=== PATIENT | female | born 1955 | race Two or more races ===

== ENCOUNTER 2023-03-12 17:04 | Inpatient (IN) | payer OTHER ==
[~2023-03-12] VITALS: Ht 167.6 cm; Wt 54.4 kg
[2023-03-12 20:59] LABS: MEAN CORPUSCULAR HGB CONC 35.6 g/dl (32.0-36.0); RED BLOOD COUNT 1.62 M/uL (4.00-6.00); RED CELL DISTRIBUTION WIDTH 17.4 % (11.5-14.5)
[2023-03-12 21:02] LABS: MEAN CELL VOLUME 130.9 fL (80.00-100.00); MEAN CORPUSCULAR HEMOGLOBIN 46.2 pg (27.00-32.0)
[2023-03-12 21:03] LABS: HEMATOCRIT 21.2 % (36.0-45.00); PLATELET COUNT 101 K/uL (150-450)
[2023-03-12 21:14] LABS: HEMOGLOBIN 7.5 g/dL (12.0-15.00)
[2023-03-12 21:22] LABS: BILIRUBIN TOTAL 1.28 mg/dL (0.3-1.2); CALCIUM 8.8 mg/dL (8.5-10.1); CREATININE SERUM 1.13 mg/dL (0.55-1.02); GFR 48.17; GLOBULINA 4.5 G/DL (2.4-3.5); TOTAL PROTEIN 7.5 gm/dL (6.4-8.2)
[2023-03-12 21:34] LABS: POTASSIUM 2.85 mEq/L (3.5-5.1)
[2023-03-13 10:30] LABS: MEAN CORPUSCULAR HGB CONC 34.7 g/dl (32.0-36.0); RED BLOOD COUNT 1.52 M/uL (4.00-6.00); RED CELL DISTRIBUTION WIDTH 16.9 % (11.5-14.5)
[2023-03-13 10:34] LABS: PLATELET COUNT 90 K/uL (150-450)
[2023-03-13 10:35] LABS: HEMATOCRIT 20.1 % (36.0-45.00); MEAN CELL VOLUME 132.2 fL (80.00-100.00)
[2023-03-13 11:10] LABS: CALCIUM 8.1 mg/dL (8.5-10.1); CREATININE SERUM 0.98 mg/dL (0.55-1.02); GFR 56.78; MAGNESIUM 1.5 mg/dL (1.8-2.4); POTASSIUM 3.12 mEq/L (3.5-5.1)
[2023-03-14 08:32] LABS: ALBUMIN 2.6 gm/dL (3.4-5.0); BILIRUBIN TOTAL 0.78 mg/dL (0.3-1.2); BILIRUBIN,CONJUGATED 0.33 mg/dL (0.0-0.2); BILIRUBIN,UNCONJUGATED 0.45 mg/dL (0.0-0.6); CALCIUM 7.9 mg/dL (8.5-10.1); CHOL HDL RATIO 1.7 (0-5.0); CREATININE SERUM 0.99 mg/dL (0.55-1.02); GFR 56.12; MAGNESIUM 1.5 mg/dL (1.8-2.4); POTASSIUM 3.75 mEq/L (3.5-5.1); TSH 0.607 uIU/mL (0.358-3.74)
[2023-03-14 08:42] LABS: INR 1.16
[2023-03-14 08:50] LABS: MEAN CORPUSCULAR HGB CONC 34.7 g/dl (32.0-36.0); RED BLOOD COUNT 1.46 M/uL (4.00-6.00); RED CELL DISTRIBUTION WIDTH 16.9 % (11.5-14.5)
[2023-03-14 08:57] LABS: C-REACTIVE PROTEIN 4.21 MG/DL (0.00-0.29); T4 FREE 1.48 NG/ML (0.76-1.46)
[2023-03-14 10:43] LABS: HEMATOCRIT 19.3 % (36.0-45.00); HEMOGLOBIN 6.7 g/dL (12.0-15.00); MEAN CELL VOLUME 132.4 fL (80.00-100.00); MEAN CORPUSCULAR HEMOGLOBIN 45.8 pg (27.00-32.0); PLATELET COUNT 85 K/uL (150-450)
[2023-03-14 10:44] LABS: ERYTHROCYTE SEDIMENTATION RATE 47 mm/hr
[2023-03-14 12:59] LABS: PH,URINE 5.5 (5.0-8.0); URINE APPEARANCE Cloudy; URINE BILIRRUBIN Negative (NEGATIVE); URINE BLOOD Large; URINE COLOR Yellow; URINE GLUCOSE Negative (NEGATIVE); URINE LEUKOCYTE Small; URINE NITRATE Negative; URINE PROTEIN 30 (NEGATIVE); URINE UROBILINOGEN 0.2 E.U./dl
[2023-03-14 13:02] LABS: URINE BACTERIA 1267.4 uL (0.0-1933); URINE EPITHELIAL CELLS 23.8 uL (0.0-38.8); URINE RBC 195.7 uL (0.0-20.8); URINE WBC 7.2 uL (0.0-23.2)
[2023-03-14 13:52] LABS: URINE CRYSTALS NEGATIVE /HPF; URINE YEAST NEGATIVE /hpf
[2023-03-15 10:48] LABS: PROCALCITONIN 0.232 ng/ml (0.020-0.080)
[2023-03-15 13:28] LABS: HEMATOCRIT 38.5 % (36.0-45.00); HEMOGLOBIN 13.8 g/dL (12.0-15.00); MEAN CELL VOLUME 99.2 fL (80.00-100.00); MEAN CORPUSCULAR HEMOGLOBIN 35.6 pg (27.00-32.0); MEAN CORPUSCULAR HGB CONC 35.9 g/dl (32.0-36.0); RED BLOOD COUNT 3.88 M/uL (4.00-6.00)
[2023-03-15 13:31] LABS: PLATELET COUNT 64 K/uL (150-450)
[2023-03-15 13:32] LABS: RED CELL DISTRIBUTION WIDTH 32.1 % (11.5-14.5)
[2023-03-16 08:04] LABS: HEMATOCRIT 40.5 % (36.0-45.00); HEMOGLOBIN 14.3 g/dL (12.0-15.00); MEAN CELL VOLUME 100.4 fL (80.00-100.00); MEAN CORPUSCULAR HEMOGLOBIN 35.5 pg (27.00-32.0); MEAN CORPUSCULAR HGB CONC 35.3 g/dl (32.0-36.0); RED BLOOD COUNT 4.03 M/uL (4.00-6.00)
[2023-03-16 08:36] LABS: ERYTHROCYTE SEDIMENTATION RATE 36 mm/hr
[2023-03-16 09:03] LABS: BILIRUBIN TOTAL 2.84 mg/dL (0.3-1.2); CALCIUM 9.1 mg/dL (8.5-10.1); CREATININE SERUM 2.08 mg/dL (0.55-1.02); GFR 23.82; GLOBULINA 3.8 G/DL (2.4-3.5); MAGNESIUM 2.5 mg/dL (1.8-2.4); TOTAL PROTEIN 6.8 gm/dL (6.4-8.2)
[2023-03-16 09:21] LABS: C-REACTIVE PROTEIN 15.6 MG/DL (0.00-0.29); PHOSPHOROUS 1.6 mg/dL (2.5-4.9); POTASSIUM 2.93 mEq/L (3.5-5.1); RED CELL DISTRIBUTION WIDTH 32.8 % (11.5-14.5)
[2023-03-16 09:22] LABS: PLATELET COUNT 47 K/uL (150-450)
[2023-03-17 09:04] LABS: HEMATOCRIT 32.1 % (36.0-45.00); HEMOGLOBIN 11.2 g/dL (12.0-15.00); MEAN CELL VOLUME 102.7 fL (80.00-100.00); MEAN CORPUSCULAR HEMOGLOBIN 35.7 pg (27.00-32.0); MEAN CORPUSCULAR HGB CONC 34.8 g/dl (32.0-36.0); RED BLOOD COUNT 3.13 M/uL (4.00-6.00)
[2023-03-17 09:31] LABS: ALBUMIN 2.2 gm/dL (3.4-5.0); BILIRUBIN TOTAL 1.45 mg/dL (0.3-1.2); BILIRUBIN,CONJUGATED 0.62 mg/dL (0.0-0.2); BILIRUBIN,UNCONJUGATED 0.83 mg/dL (0.0-0.6); CALCIUM 7.8 mg/dL (8.5-10.1); CREATININE SERUM 2.2 mg/dL (0.55-1.02); GFR 22.33; MAGNESIUM 2.4 mg/dL (1.8-2.4); POTASSIUM 5.16 mEq/L (3.5-5.1)
[2023-03-17 09:35] LABS: PLATELET COUNT 31 K/uL (150-450); RED CELL DISTRIBUTION WIDTH 32.4 % (11.5-14.5)
[2023-03-18 07:35] LABS: HEMATOCRIT 27.6 % (36.0-45.00); MEAN CORPUSCULAR HGB CONC 35.7 g/dl (32.0-36.0); RED BLOOD COUNT 2.63 M/uL (4.00-6.00)
[2023-03-18 08:03] LABS: ALBUMIN 1.8 gm/dL (3.4-5.0); BILIRUBIN TOTAL 1.34 mg/dL (0.3-1.2); CREATININE SERUM 1.31 mg/dL (0.55-1.02); GFR 40.62; GLOBULINA 2.2 G/DL (2.4-3.5); MAGNESIUM 2.1 mg/dL (1.8-2.4); PHOSPHOROUS 3.9 mg/dL (2.5-4.9); POTASSIUM 4.51 mEq/L (3.5-5.1)
[2023-03-18 08:24] LABS: CALCIUM 6.5 mg/dL (8.5-10.1)
[2023-03-18 08:31] LABS: RED CELL DISTRIBUTION WIDTH 31.6 % (11.5-14.5)
[2023-03-18 08:34] LABS: MEAN CORPUSCULAR HEMOGLOBIN 37.6 pg (27.00-32.0)
[2023-03-18 08:38] LABS: HEMOGLOBIN 9.9 g/dL (12.0-15.00)
[2023-03-18 08:39] LABS: PLATELET COUNT 24 K/uL (150-450)
[2023-03-18 08:42] LABS: PLATELET ESTIMATE DECREASED (NORMAL)
[2023-03-18 09:16] LABS: ABG PH 7.357 (7.35-7.45); ABG PO2 108.2 mmHg (80-100); ABG pCO2 20.1 mmHg (35-45); BASE EXCESS -11.9 mmol/l; SaO2 97.7 %; Tco2 11.6 mmol/l
[2023-03-18 10:57] LABS: allen test SATISFACTORY; o2 21 %; puncture site RADIAL RIGHT
[2023-03-19 07:05] LABS: BILIRUBIN TOTAL 1.41 mg/dL (0.3-1.2); BILIRUBIN,CONJUGATED 0.52 mg/dL (0.0-0.2); BILIRUBIN,UNCONJUGATED 0.89 mg/dL (0.0-0.6)
[2023-03-19 07:07] LABS: BILIRUBIN TOTAL 1.38 mg/dL (0.3-1.2); CREATININE SERUM 1.76 mg/dL (0.55-1.02); GFR 28.89; GLOBULINA 2.6 G/DL (2.4-3.5); HEMATOCRIT 36.4 % (36.0-45.00); MEAN CELL VOLUME 105.7 fL (80.00-100.00); MEAN CORPUSCULAR HEMOGLOBIN 34.7 pg (27.00-32.0); MEAN CORPUSCULAR HGB CONC 32.8 g/dl (32.0-36.0); POTASSIUM 4.14 mEq/L (3.5-5.1); RED BLOOD COUNT 3.45 M/uL (4.00-6.00); TOTAL PROTEIN 4.6 gm/dL (6.4-8.2)
[2023-03-19 07:15] LABS: INR 1.39; PARTIAL THROMBOPLASTIN TIME 33.9 SECONDS (22.0-34.0); PROTHROMBIN TIME 14.2 SECONDS (9.0-11.5)
[2023-03-19 08:18] LABS: RED CELL DISTRIBUTION WIDTH 30.9 % (11.5-14.5)
[2023-03-19 08:19] LABS: PLATELET COUNT 14 K/uL (150-450)
[2023-03-20 10:19] LABS: HEMATOCRIT 25.6 % (36.0-45.00); MEAN CELL VOLUME 108.2 fL (80.00-100.00); MEAN CORPUSCULAR HGB CONC 32.6 g/dl (32.0-36.0); RED BLOOD COUNT 2.37 M/uL (4.00-6.00)
[2023-03-20 11:04] LABS: ABG PH 6.823 (7.35-7.45)
[2023-03-20 11:05] LABS: ABG pCO2 95.3 mmHg (35-45); BASE EXCESS -20.8 mmol/l; BICARBONATE 15.3 mmol/l (23-25); SaO2 96.6 %; Tco2 18.2 mmol/l; o2 100 %; puncture site RADIAL RIGHT
[2023-03-20 11:06] LABS: allen test SATISFACTORY
[2023-03-20 11:07] LABS: ALBUMIN 1.6 gm/dL (3.4-5.0); BILIRUBIN TOTAL 0.76 mg/dL (0.3-1.2); CREATININE SERUM 1.58 mg/dL (0.55-1.02); GFR 32.72; MAGNESIUM 2.6 mg/dL (1.8-2.4); PHOSPHOROUS 5.3 mg/dL (2.5-4.9); POTASSIUM 5.08 mEq/L (3.5-5.1); TOTAL PROTEIN 3.6 gm/dL (6.4-8.2)
[2023-03-20 11:34] LABS: CKMB 14.5 NG/ML (0.5-3.6)
[2023-03-20 12:02] LABS: RED CELL DISTRIBUTION WIDTH 30.6 % (11.5-14.5)
[2023-03-20 12:03] LABS: HEMOGLOBIN 8.3 g/dL (12.0-15.00)
[2023-03-20 12:04] LABS: PLATELET COUNT 47 K/uL (150-450)
[2023-03-20 12:43] LABS: INR 1.81
[2023-03-20 13:59] LABS: PARTIAL THROMBOPLASTIN TIME 109.4 SECONDS (22.0-34.0)
[2023-03-20 14:01] LABS: PROTHROMBIN TIME 18.2 SECONDS (9.0-11.5)
== END 2023-03-20 13:27 | disposition expired | DRG 391 ==
LOC: ER 17:05 → SURG 03-13 10:13 → SEC-K 03-13 10:13 → SURG 03-13 13:23 → ICU 03-17 22:04
PROVIDERS: Emergency Medicine; Internal Medicine; Internal Medicine Endocrinology, Diabetes & Metabolism; Internal Medicine Hematology & Oncology; Student in an Organized Health Care Education/Training Program; ADMIT Internal Medicine; ATTEND Internal Medicine
PROC: BW21ZZZ Computerized Tomography (CT Scan) of Abdomen and Pelvis (ICD-10-PCS; principal; 2023-03-12)
PROC: B246ZZZ Ultrasonography of Right and Left Heart (ICD-10-PCS; 2023-03-13)
PROC: 30233N1 Transfusion of Nonautologous Red Blood Cells into Peripheral Vein, Percutaneous Approach (ICD-10-PCS; 2023-03-14)
PROC: BW21ZZZ Computerized Tomography (CT Scan) of Abdomen and Pelvis (ICD-10-PCS; 2023-03-17)
PROC: BW40ZZZ Ultrasonography of Abdomen (ICD-10-PCS; 2023-03-17)
PROC: 02HV33Z Insertion of Infusion Device into Superior Vena Cava, Percutaneous Approach (ICD-10-PCS; 2023-03-17)
PROC: B54DZZZ Ultrasonography of Bilateral Lower Extremity Veins (ICD-10-PCS; 2023-03-18)
PROC: 0D9670Z Drainage of Stomach with Drainage Device, Via Natural or Artificial Opening (ICD-10-PCS; 2023-03-18)
PROC: 3E0G76Z Introduction of Nutritional Substance into Upper GI, Via Natural or Artificial Opening (ICD-10-PCS; 2023-03-18)
PROC: 5A12012 Performance of Cardiac Output, Single, Manual (ICD-10-PCS; 2023-03-20)
PROC: 0BH17EZ Insertion of Endotracheal Airway into Trachea, Via Natural or Artificial Opening (ICD-10-PCS; 2023-03-20)
PROC: 5A1935Z Respiratory Ventilation, Less than 24 Consecutive Hours (ICD-10-PCS; 2023-03-20)
PROC: 30233R1 Transfusion of Nonautologous Platelets into Peripheral Vein, Percutaneous Approach (ICD-10-PCS; 2023-03-20)
DX: A09 Infectious gastroenteritis and colitis, unspecified (principal); A41.9 Sepsis, unspecified organism; R65.21 Severe sepsis with septic shock; E43 Unspecified severe protein-calorie malnutrition; N17.8 Other acute kidney failure; K56.699 Other intestinal obstruction unspecified as to partial versus complete obstruction; E87.21 Acute metabolic acidosis; J98.11 Atelectasis; E87.3 Alkalosis; Z68.1 Body mass index [BMI] 19.9 or less, adult; A05.9 Bacterial foodborne intoxication, unspecified; I46.9 Cardiac arrest, cause unspecified; T50.8X5A Adverse effect of diagnostic agents, initial encounter; D53.1 Other megaloblastic anemias, not elsewhere classified; D69.6 Thrombocytopenia, unspecified; D35.00 Benign neoplasm of unspecified adrenal gland; I12.9 Hypertensive chronic kidney disease with stage 1 through stage 4 chronic kidney disease, or unspecified chronic kidney disease; N18.9 Chronic kidney disease, unspecified; E87.6 Hypokalemia; E80.6 Other disorders of bilirubin metabolism; Z91.018 Allergy to other foods; Z88.1 Allergy status to other antibiotic agents; Z91.013 Allergy to seafood; Z91.041 Radiographic dye allergy status; Z86.16 Personal history of COVID-19